=== PATIENT | male | born 1980 | race African-American/Black ===

== ENCOUNTER 2017-02-11 10:07 | Emergency (ER) | payer OTHER | END 2017-02-11 12:15 | disposition home or self-care (01) | LOC: FER 10:07 | DX: S16.1XXA Strain of muscle, fascia and tendon at neck level, initial encounter (principal); M54.5 Low back pain; I10 Essential (primary) hypertension; Z88.2 Allergy status to sulfonamides; V49.40XA Driver injured in collision with unspecified motor vehicles in traffic accident, initial encounter; Y92.410 Unspecified street and highway as the place of occurrence of the external cause | CPT/HCPCS: 72040; 72072; J1885 ==